=== PATIENT | male | born 1970 | race Caucasian/White ===

== ENCOUNTER 2019-03-29 00:23 | Day surgery (SDC) | payer BC, SELFPAY ==
--- NOTE | 2019-03-29 10:05 | WPDANESEPPF ---
Anes - Initial Pre Proc Eval Procedure: Operation Date: 03/29/19 11:45 Proposed Procedures p Esophagogastroduodenoscopy&Screen Colon - Salas Briseno MD Date/Time: 03/29/19 10:05 Surgeon: Salas Briseno MD Pre Op Diagnosis: Constipation, Dyspepsia, GERD, Epigastric Pain Patient Data Age: 49 Gender: M Height: 1.78 m Weight: 95 kg Allergies Allergy/AdvReac Type Severity Reaction Status Date / Time No Known Allergies Allergy Mild Verified 03/29/19 10:40 Home Medications Medication Instructions Recorded Confirmed Type pantoprazole 40 mg tablet,delayed 40 mg PO QAM 02/28/19 03/18/19 History release pramipexole 0.5 mg tablet 0.5 mg PO TID 02/28/19 03/18/19 History famotidine [Pepcid] 20 mg PO HS 03/18/19 03/18/19 History Patient hx anesthesia problems: none Family hx anesthesia problems: none PMFSH Past Medical History Medical History (Updated 03/29/19 @ 10:51 by Gerardo Cardoza MD) Abdominal pain Abnormal heart rhythm Colon cancer screening Colon, diverticulosis Constipation Dyspepsia GERD (gastroesophageal reflux disease) Heart murmur Obesity Ulcers of both great toes Surgical History Surgical History (Updated 03/29/19 @ 10:51 by Gerardo Cardoza MD) History of ERCP stent placement 2000 Hx of cholecystectomy Family History Family History (Updated 02/28/19 @ 09:05 by Brett Gonzalez) Father , MVA No problems noted. Mother No problems noted. Anes - Eval Final PreProcedure Day of Procedure 03/29/19 10:05 Patient weight: obese Heart: regular rate and rhythm Lungs: clear to auscultation and normal air movement Airway: Mallampati scale class II Neurological: alert and oriented Last oral intake: >/= 8 hours ASA classification: II Emergent: no Anesthetic plan: proceed Anesthesia type and monitoring: general GIVS Informed Consent: The patient's anesthetic plan and its attendant risks and benefits were discussed with the patient/family/POA. Questions were solicited and answers provided to the satisfaction of the patient/family/POA.
[2019-03-29 10:41] VITALS: BP 139/76; PULSE 80; RESP 16; TEMP 36.8; O2SAT 99
[2019-03-29] MEDS: LACTATED RINGERS 1,000 ML 150 ML IV CONT (10:56)
--- NOTE | 2019-03-29 12:09 | WPDHPUPDATE1 ---
History and Physical Update Update Date/Time: 03/29/19 12:09 History and Physical has been reviewed, including an updated exam of the patient. There are NO changes in the patient's condition. Risks, benefits, and alternatives have been discussed and questions answered. Patient agrees to proceed with procedure.
[2019-03-29 12:46] VITALS: BP 110/62; PULSE 86; RESP 25; O2SAT 97
[2019-03-29 12:56] VITALS: BP 104/72; PULSE 78; RESP 20; O2SAT 97
[2019-03-29 13:06] VITALS: BP 113/73; PULSE 73; RESP 21; O2SAT 99
== END 2019-03-29 13:18 | disposition home or self-care (01) ==
PROVIDERS: PCP Internal Medicine; Visit Provider Internal Medicine Gastroenterology
PROC: 0DJ08ZZ Inspection of Upper Intestinal Tract, Via Natural or Artificial Opening Endoscopic (ICD-10-PCS; CPT 43235; principal; 2019-03-29 11:45)
DX: Z12.11 Encounter for screening for malignant neoplasm of colon (principal); D12.2 Benign neoplasm of ascending colon; K63.5 Polyp of colon; K64.8 Other hemorrhoids; K29.50 Unspecified chronic gastritis without bleeding; K21.9 Gastro-esophageal reflux disease without esophagitis; K59.00 Constipation, unspecified; E66.9 Obesity, unspecified; Z68.31 Body mass index [BMI] 31.0-31.9, adult
CPT/HCPCS: 45380; 43239; 87081; 88305; J2704; J7120

== ENCOUNTER 2021-02-25 13:07 | Emergency (ER) | payer BC, SELFPAY ==
[2021-02-25 13:24] VITALS: BP 156/92; PULSE 86; RESP 18; TEMP 36.8; O2SAT 96
[2021-02-25 16:47] VITALS: BP 146/109; PULSE 88; RESP 18; TEMP 36.4; O2SAT 96
--- NOTE | 2021-02-25 17:08 | PC.NURSE ---
Pt at intake desk states Just take me off the list too. Ambulated out of ed with steady gait.
== END 2021-02-26 00:20 | disposition left against medical advice (07) ==
LOC: ANHED 17:20
PROVIDERS: PCP Internal Medicine
DX: Z53.21 Procedure and treatment not carried out due to patient leaving prior to being seen by health care provider (principal)
CPT/HCPCS: 99199

== ENCOUNTER 2023-11-03 14:05 | Outpatient (CLI) | payer BC, SELFPAY ==
[2023-11-03 14:55] LABS: Prothrombin Time 13.1 Seconds (11.1-14.7)
[2023-11-03 15:03] LABS: Iron 164 ug/dL (49-181)
[2023-11-03 15:10] LABS: Alanine Aminotransferase 88 U/L (6-50); Albumin Level 4.6 g/dL (3.5-5.1); Alkaline Phosphatase 59 U/L (38-126); Aspartate Amino Transferase 52 U/L (17-59); Bilirubin,Total 0.9 mg/dL (0.2-1.3)
[2023-11-03 15:17] LABS: Percent Iron Saturation 61 % (20-50)
[2023-11-03 15:38] LABS: Hepatitis B Surface Antigen Negative (Negative)
[2023-11-03 15:44] LABS: HAV RESULT Negative (Negative); Hepatitis B Core IgM Result Negative (Negative)
[2023-11-03 15:56] LABS: Hepatitis B Surface Anti Res Negative; Hepatitis C Virus Antibody Negative (Negative)
[2023-11-06 11:33] LABS: Alpha Fetoprotein Tumor Marker 3.1 ng/mL (<6.1)
[2023-11-06 12:14] LABS: Alpha-1-Antitrypsin, QN 128 mg/dL (83-199)
[2023-11-06 12:39] LABS: Anti Nuclear Antibody Pattern Nuclear, Speckled
[2023-11-08 11:38] LABS: Actin Antibody (IgG) <20 U (<20)
[2023-11-09 13:19] LABS: LKM 1 Antibody <=20.0 U (<=20.0)
[2023-11-09 23:18] LABS: ALT 53 U/L (9-46); Alpha-2-Macroglobulin 263 mg/dL (106-279); Apolipoprotein A1 133 mg/dL (94-176); Fibrosis Score 0.67; Fibrosis Stage F3; GGT 36 U/L (3-95); Haptoglobin 28 mg/dL (43-212); Necroinflammat Act Grade A1-A2; Reference ID 5095397; Total Bilirubin 0.6 mg/dL (0.2-1.2)
[2023-11-10 10:50] LABS: Mitochondrial (M2) Ab (IgG) <20.0 U
== END 2023-11-03 14:06 | disposition home or self-care (01) ==
LOC: ANHLAB 14:06
PROVIDERS: PCP Physician Assistant Medical; Visit Provider Nurse Practitioner
DX: R74.8 Abnormal levels of other serum enzymes (principal); K76.0 Fatty (change of) liver, not elsewhere classified; K74.60 Unspecified cirrhosis of liver
CPT/HCPCS: 36415; 80074; 80076; 81596; 82103; 82105; 82728; 83520; 83540; 83550; 85610; 86038; 86039; 86364; 86376; 86706; 87340

== ENCOUNTER 2023-12-22 02:27 | Day surgery (SDC) | payer BC, SELFPAY ==
[2023-12-09 09:42] VITALS: BMI 33.8
[2023-12-22 09:00] VITALS: BP 140/71; PULSE 63; RESP 17; TEMP 36.1; O2SAT 99; BMI 33.2
--- NOTE | 2023-12-22 09:02 | WPDANESEPPF ---
Anes - Initial Pre Proc Eval Procedure: Operation Date: 12/22/23 10:00 Proposed Procedures p Esophagogastroduodenoscopy - Salas Briseno MD Date/Time: 12/22/23 09:02 Surgeon: Salas Briseno MD Pre Op Diagnosis: hx of peptic ulcer, GERD, hepatomegaly Patient Data Age: 53 Gender: M Height: 1.78 m Weight: 107 kg Allergies Allergy/AdvReac Type Severity Reaction Status Date / Time No Known Allergies Allergy Mild Verified 12/22/23 08:59 Home Medications Medication Instructions Recorded Confirmed Type losartan 25 mg tablet 25 mg PO DAILY #90 tabs 07/23/22 12/22/23 Rx pantoprazole 40 mg tablet,delayed 40 mg PO BID #180 tabs 12/22/22 12/22/23 Rx release pramipexole 0.5 mg tablet 0.5 mg PO BID #180 tabs 08/21/23 12/22/23 Rx cetirizine 10 mg tablet 10 mg PO DAILY PRN ALLERGIES 09/15/23 12/22/23 History furosemide 40 mg tablet 40 mg PO QAM 09/15/23 12/22/23 History montelukast 10 mg tablet 10 mg PO DAILY 09/15/23 12/22/23 History potassium chloride 20 mEq oral 20 meq PO BID 09/15/23 12/22/23 History packet lansoprazole 30 mg capsule,delayed 30 mg PO DAILY #30 caps 11/03/23 12/22/23 Rx release metoprolol succinate 50 mg 25 mg PO DAILY #90 tabs 11/30/23 12/22/23 Rx tablet,extended release 24 hr Patient hx anesthesia problems: none Family hx anesthesia problems: none Results Review: All pre-operative results and documents have been reviewed as part of the pre-operative evaluation. 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 Duron Restless leg syndrome Ulcers of both great toes Vitamin B12 deficiency Vitamin D deficiency Surgical History Surgical History History of ERCP stent placement 2000 Hx of cholecystectomy Family History Family History Father , MVA No problems noted. Mother No problems noted. Social History Social History Smoking status: Never smoker Alcohol intake: never Substance use: never Substance use type: does not use Lack of Transportation: No Lack of Food: Never True Current Housing: I Have Housing Concerned About Future Housing: No Difficulty Paying Gas/Electric Bills: No Difficulty Paying for Meds: No Currently Unemployed: No Education: High School Diploma/GED Difficulty w/ Childcare or Family Care: No Living arrangements: with family Occupation/Education: occupation Gender identity (if verbalized by the patient): Male Spiritual care concerns: No Anes - Eval Final PreProcedure Day of Procedure 12/22/23 09:02 Patient weight: obese Heart: regular rate and rhythm Lungs: clear to auscultation Airway: Mallampati scale class II Neurological: alert and oriented Last oral intake: >/= 8 hours ASA classification: III Emergent: no Anesthetic plan: proceed Anesthesia type and monitoring: general GIVS and standard monitoring Results Review: All pre-operative results and documents have been reviewed as part of the pre-operative evaluation. Informed Consent: The patient's anesthetic plan and its attendant risks and benefits were discussed with the patient/family/POA. Questions were solicited and answers provided to the satisfaction of the patient/family/POA.
[2023-12-22] MEDS: LACTATED RINGERS 1,000 ML 150 ML IV CONT (09:07)
--- NOTE | 2023-12-22 09:31 | PM.HPGS ---
History of Present Illness History of Present Illness Consent: Risks, benefits, and alternatives have been discussed and questions answered. Patient agrees to proceed with procedure. 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 Duron Restless leg syndrome Ulcers of both great toes Vitamin B12 deficiency Vitamin D deficiency Surgical History Surgical History History of ERCP stent placement 2000 Hx of cholecystectomy Family History Family History Father , MVA No problems noted. Mother No problems noted. Social History Social History Smoking status: Never smoker Alcohol intake: never Substance use: never Substance use type: does not use Lack of Transportation: No Lack of Food: Never True Current Housing: I Have Housing Concerned About Future Housing: No Difficulty Paying Gas/Electric Bills: No Difficulty Paying for Meds: No Currently Unemployed: No Education: High School Diploma/GED Difficulty w/ Childcare or Family Care: No Living arrangements: with family Occupation/Education: occupation Gender identity (if verbalized by the patient): Male Spiritual care concerns: No Meds Home Medications and Allergies Home Medications Medication Instructions Recorded Confirmed Type losartan 25 mg tablet 25 mg PO DAILY #90 tabs 07/23/22 12/22/23 Rx pantoprazole 40 mg tablet,delayed 40 mg PO BID #180 tabs 12/22/22 12/22/23 Rx release pramipexole 0.5 mg tablet 0.5 mg PO BID #180 tabs 08/21/23 12/22/23 Rx cetirizine 10 mg tablet 10 mg PO DAILY PRN ALLERGIES 09/15/23 12/22/23 History furosemide 40 mg tablet 40 mg PO QAM 09/15/23 12/22/23 History montelukast 10 mg tablet 10 mg PO DAILY 09/15/23 12/22/23 History potassium chloride 20 mEq oral 20 meq PO BID 09/15/23 12/22/23 History packet lansoprazole 30 mg capsule,delayed 30 mg PO DAILY #30 caps 11/03/23 12/22/23 Rx release metoprolol succinate 50 mg 25 mg PO DAILY #90 tabs 11/30/23 12/22/23 Rx tablet,extended release 24 hr Allergies Allergy/AdvReac Type Severity Reaction Status Date / Time No Known Allergies Allergy Mild Verified 12/22/23 08:59 Vital Signs Vital Signs - 24 hr 12/22/23 09:00 Temperature 97 F L Pulse Rate 63 Respiratory Rate 17 Blood Pressure 140/71 Pulse Oximetry 99 Oxygen Delivery Room Air Exam Const: General: comfortable and no acute distress HENMT: Face/Nose/Sinus: Normal nares present Eyes: General: appearance normal, both eyes and all related structures Neck: Neck: no JVD Resp: Auscultation: clear to auscultation bilaterally Cardio: Rate: regular rate Rhythm: regular rhythm GI: Inspection: non-distended GI Palp: Yes Soft to palpation Skin: General skin exam: normal color Neuro: General: gait normal Speech: normal speech Extrem: General: normal to inspection Psych: Mental Status: mental status grossly normal Assessment and Plan Assessment and plan (1) Epigastric burning sensation: Code(s): R10.13 - Epigastric
[2023-12-22 09:45] VITALS: BP 142/80; PULSE 71; RESP 25; O2SAT 93
[2023-12-22 09:55] VITALS: BP 109/65; PULSE 62; RESP 23; O2SAT 99
[2023-12-22 10:05] VITALS: BP 118/69; PULSE 56; RESP 20; O2SAT 99
== END 2023-12-22 10:18 | disposition home or self-care (01) ==
PROVIDERS: PCP Physician Assistant Medical; Visit Provider Internal Medicine Gastroenterology
PROC: 0DJ08ZZ Inspection of Upper Intestinal Tract, Via Natural or Artificial Opening Endoscopic (ICD-10-PCS; CPT 43235; principal; 2023-12-22 10:00)
DX: K29.50 Unspecified chronic gastritis without bleeding (principal); K21.9 Gastro-esophageal reflux disease without esophagitis; R16.0 Hepatomegaly, not elsewhere classified; I49.9 Cardiac arrhythmia, unspecified; F41.9 Anxiety disorder, unspecified; E11.9 Type 2 diabetes mellitus without complications; E78.5 Hyperlipidemia, unspecified; R01.1 Cardiac murmur, unspecified; G47.33 Obstructive sleep apnea (adult) (pediatric); G25.81 Restless legs syndrome; E55.9 Vitamin D deficiency, unspecified; E53.8 Deficiency of other specified B group vitamins; E66.9 Obesity, unspecified; Z68.33 Body mass index [BMI] 33.0-33.9, adult; Z98.890 Other specified postprocedural states; Z90.49 Acquired absence of other specified parts of digestive tract; Z96.89 Presence of other specified functional implants; Z87.11 Personal history of peptic ulcer disease; Z86.018 Personal history of other benign neoplasm
CPT/HCPCS: 43239; 88305; J2704; J7120

== ENCOUNTER 2024-09-13 10:30 | Outpatient (RCR) | payer BC, SELFPAY ==
[2024-09-13 10:44] VITALS: BMI 34.1
[2024-09-13 10:45] VITALS: BMI 34.1
--- NOTE | 2024-09-13 12:18 | PCDIET ---
09/13 MNT consult completed See [id number] -> nurse/[facility] -> nutrition follow up scheduled in September.
== END 2024-11-28 09:14 | disposition home or self-care (01) ==
LOC: ANHDMC 10:30
PROVIDERS: PCP Physician Assistant Medical; Visit Provider Internal Medicine Gastroenterology
DX: K74.00 Hepatic fibrosis, unspecified (principal); E66.9 Obesity, unspecified; Z71.3 Dietary counseling and surveillance
CPT/HCPCS: 97802